=== PATIENT | male | born 1980 | race Two or more races ===

== ENCOUNTER 2017-01-03 14:25 | Emergency (ER) | payer MEDICAID ==
[~2017-01-03] VITALS: Ht 165.1 cm; Wt 72.6 kg
[2017-01-03] MEDS ORDERED: IBUPROFEN 800 MG TAB PO ONE (15:00)
[2017-01-03 15:06] VITALS: BP 133/80
[2017-01-03] MEDS ORDERED: TETANUS-DIPTH-ACEL PERTUSSIS 0.5ML SYRG IM ONE (16:45)
[2017-01-03] MEDS ORDERED: LIDOCAINE 1% HCL (LOCAL ANESTH.) INJ 20ML MDV IJ ONE (17:30)
== END 2017-01-03 17:45 | disposition home or self-care (01) ==
LOC: ER 14:25
DX: S01.21XA Laceration without foreign body of nose, initial encounter (principal); S90.32XA Contusion of left foot, initial encounter; W18.39XA Other fall on same level, initial encounter; Y93.89 Activity, other specified; Y92.89 Other specified places as the place of occurrence of the external cause; Y99.8 Other external cause status
CPT/HCPCS: 12011; 70160; 73610; 73700; 90471; 90715